=== PATIENT | male | born 1965 | race Caucasian/White ===

== ENCOUNTER → 2021-01-07 | Outpatient (CLI) | payer OTHER ==
[~2021-01-07] MED LIST: CORTEF 20 MG TA20 MG PO; CORTEF PO; CORTEF5 MG; CORTEF5 MG PO; FLEXERIL PO; FLORINEF ACETA0.1 MG; FLORINEF ACETA0.1 MG PO; HIGH CHOLESTEROL MED; IBUPROFEN 800800 M1 PO; IRON159 MG; IRON325 PO; MEDROLDOSEPACK PO; MULTIVITAMINS1 EAC7; PRAVASTATIN SOD20 MG PO; PRILOSEC OTC20 MG PO; PROZAC20 MG PO; VITAMIN D400 UNI1; ZITHROMAX500 MG PO; ZPAK PO
== END ==
LOC: SJCVCIMAG 07:25 → SJCVC 11:08
PROVIDERS: ATTEND Internal Medicine
DX: I35.8 Other nonrheumatic aortic valve disorders (principal); F41.9 Anxiety disorder, unspecified; E78.5 Hyperlipidemia, unspecified; R00.2 Palpitations; Z79.899 Other long term (current) drug therapy; Z72.89 Other problems related to lifestyle; Z87.891 Personal history of nicotine dependence